=== PATIENT | male | born 1985 | race Caucasian/White ===

== ENCOUNTER 2024-04-12 11:20 | Emergency (ER) | payer OTHER, BC ==
[~2024-04-12] VITALS: Ht 175.3 cm; Wt 99.8 kg
[2024-04-12 11:25] VITALS: BP 138/94
[2024-04-12] MEDS ORDERED: Ketorolac Tromethamine 30mg Vial IM ONE (12:00)
[2024-04-12] MEDS ORDERED: OXAYDO5 M2 PO (12:07)
== END 2024-04-12 12:18 | disposition home or self-care (01) ==
LOC: ER 11:20
DX: S42.022A Displaced fracture of shaft of left clavicle, initial encounter for closed fracture (principal); V89.2XXA Person injured in unspecified motor-vehicle accident, traffic, initial encounter
CPT/HCPCS: 73000; 96372; 99283-25; J1885

== ENCOUNTER 2025-03-09 10:51 | Day surgery (SDC) | payer BC ==
[~2025-03-09] VITALS: Ht 175.3 cm; Wt 91.1 kg
[2025-03-09] VITALS (13 sets, daily range): BP systolic 104–140; BP diastolic 58–88
[~2025-03-09 10:51] MED LIST: CeFAZolin Sodium 2,000 MG in NS 100 ML IV SCH; OXAYDO5 M2 PO
[2025-03-09] MEDS ORDERED: Bupivacaine 0.5% HCl 5 MG/ML 30MLVIAL ONE (11:19)
--- NOTE | 2025-03-09 11:23 | NUR ---
Ambulatory in Day [facility] Pre-Op teaching done. Pt verbalizes understanding. History, Chart, Medications and Allergies reviewed before start of procedure.Patient confirms NPO status and agrees with scheduled surgery. Patient reports completing Chlorhexadine shower X2 prior to admission to hospital. Patient States Post-Procedure ride home has been arranged.
[2025-03-09] MEDS ORDERED: FentaNYL Citrate 50 MCG/ML 2 ML Injection ONE ×2 (11:54→14:27)
[2025-03-09] MEDS ORDERED: Ondansetron HCl 2 MG / ML 2ML Vial ONE (12:17)
[2025-03-09] MEDS ORDERED: Dexamethasone Sod Phos 10 MG/ML 1ML VIAL ONE (12:17)
[2025-03-09] MEDS ORDERED: Rocuronium Bromide 10 MG/ML 5ML Injection IV ONE ×3 (12:17→14:06)
[2025-03-09] MEDS ORDERED: Ketorolac Tromethamine 30mg Vial ONE (12:18)
[2025-03-09] MEDS ORDERED: HYDROmorphone HCl/Pf 1MG SYR IV PRN (13:40)
[2025-03-09] MEDS ORDERED: FentaNYL Citrate 50 MCG/ML 2 ML Injection IV PRN ×3 (13:40→13:45)
[2025-03-09] MEDS ORDERED: Labetalol HCL 5 MG/ML 4ML Injection (Single Dose) IV PRN (13:40)
[2025-03-09] MEDS ORDERED: Ondansetron HCl 2 MG / ML 2ML Vial IV PRN (13:45)
[2025-03-09] MEDS ORDERED: Glycopyrrolate 0.2 MG/ML 5ML VIAL ONE (13:58)
[2025-03-09] MEDS ORDERED: Neostigmine Methylsulfate 5MG/5ML SYR ONE (13:58)
[2025-03-09] MEDS ORDERED: HYDROcodone 5-APAP 325 TAB PO PRN (14:25)
--- NOTE | 2025-03-09 15:39 | NUR ---
Patient up to Ambulate independently. Gait steady. Discharge instructions reviewed with patient. Patient verbalizes understanding. Copy given to patient to take home. Patient States Post-Procedure ride home has been arranged. Discharged via wheelchair to private car for ride home. PT TOLERATING PO, REPORTS PAIN TOLERABLE. INCISIONS CONT TO BE C/D/I. ICE GIVEN TO PT. PT REPORTS READY TO GO HOME.
== END 2025-03-09 15:39 | disposition home or self-care (01) ==
LOC: ORSCMMR 10:51 → ORD 12:15 → ORSCMMR 12:15
PROVIDERS: Surgery
PROC: 0YU54JZ Supplement Right Inguinal Region with Synthetic Substitute, Percutaneous Endoscopic Approach (ICD-10-PCS; principal; 2025-03-09 12:15)
PROC: 0BUT0JZ Supplement Diaphragm with Synthetic Substitute, Open Approach (ICD-10-PCS; principal; 2025-03-09 12:15)
PROC: 8E0W4CZ Robotic Assisted Procedure of Trunk Region, Percutaneous Endoscopic Approach (ICD-10-PCS; principal; 2025-03-09 12:15)
DX: K40.90 Unilateral inguinal hernia, without obstruction or gangrene, not specified as recurrent (principal); K43.6 Other and unspecified ventral hernia with obstruction, without gangrene
CPT/HCPCS: A9270; C1781; J0690; J1100; J1885; J2405; J2704; J2710; J3010; J7120